=== PATIENT | male | born 1965 | race Caucasian/White ===

== ENCOUNTER → 2019-11-06 07:18 | Outpatient (CLI) | payer OTHER, SELFPAY ==
--- NOTE | 2019-11-06 07:25 | CT_ITS ---
STUDY: CT SOFT TISSUE NECK WITH CONTRAST REASON FOR EXAM: Male, 53 years old. INTERMITTENT SWELLING LEFT JAW AREA/PAINFUL RADIATION DOSAGE (If Supplied By Facility): CTDIvol = ( 19.54 ) mGy, DLP = ( 521.94 ) mGycm TECHNIQUE: The patient was scanned in a multi-detector CT scanner. High resolution transaxial imaging was performed following intravenous administration of IV 75mL Isovue-300. Sagittal and coronal images were reconstructed. Individualized dose optimization techniques were used for this CT. COMPARISON: None. FINDINGS: Normal bilateral parotid glands. Normal bilateral bar useful or busser spaces. Normal bilateral parapharyngeal spaces. Normal bilateral carotid spaces. Normal bilateral sublingual and submandibular glands and spaces. Normal visualized nasopharynx. Normal retropharyngeal space. Normal perivertebral space. Normal visualized bilateral faucial tonsils. The visualized tongue, tongue base and oropharynx are normal. The visualized cervical lymph nodes (levels I-) are within normal size limits, and maintain normal morphology. There is no demonstrated solid or cystic mass lesion. There is no abnormal contrast enhancement. Normal epiglottis, bilateral vallecula and hypopharynx. The pre-epiglottic and paraglottic adipose spaces are normal. Normal visualized bilateral piriform sinuses, aryepiglottic folds, vocal cords, and arytenoid-cricoid articulations. Normal subglottic trachea. There is a 4.4 mm enhancing rounded nodular density in the medial aspect of the right lobe of the thyroid. Correlation with ultrasound is recommended. Normal visualized pulmonary apices. Partial opacification of the maxillary sinuses along the inferior aspect more prominent on the left side. There is evidence of a well-corticated 9.2 mm well-defined bony fragment adjacent to the posterior aspect of the spinous process of the C7 vertebrae. 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 CT/Soft Tissue Neck WITH Contrast IMPRESSION: 4.4 mm enhancing nodular density in the medial aspect of the right lobe of the thyroid. Correlation with ultrasound is recommended. Partial opacification of the maxillary sinus bilaterally slightly worse on the left side. Electronically Signed: Bandar Smart, at 10:08 EDT , Service support ,
== END ==
PROVIDERS: PCP Family Medicine; Referring Provider Otolaryngology; Visit Provider Otolaryngology
DX: R22.1 Localized swelling, mass and lump, neck (principal); K11.20 Sialoadenitis, unspecified
CPT/HCPCS: 70491; Q9967